=== PATIENT | female | born 1995 | race Caucasian/White ===

== ENCOUNTER 2018-07-09 23:22 | Emergency (ER) | payer OTHER ==
[2018-07-09] MEDS ORDERED: NS 1,000 ML IV ONE (23:40)
[2018-07-09] MEDS ORDERED: KETOROLAC 15 MG/1 ML SDV IVP ONE (23:40)
--- NOTE | 2018-07-09 23:45 | EDPHY ---
H & P Smoking Status: Never smoked Time Seen by Provider: 07/09/18 23:32 HPI/ROS: CHIEF COMPLAINT: Pelvic pain for 3 hr HISTORY OF PRESENT ILLNESS: The patient is a 23-year-old female here complaint of sudden onset of lower pelvic pain for the last 3 hr. She states he just started her periods was having some vaginal bleeding but has noted no blood in her urine. She is currently being treated for urinary tract infection and has been for the last 4 days but does not know what antibiotic she is taking. She denies any fever chills or back pain. She states this. His normal timing for her monthly period. She denies vaginal discharge. She has no history of ovarian cyst. She does report painful periods but this is much more intense than usual. REVIEW OF SYSTEMS: Constitutional: No fever, no chills. Eyes: No discharge. ENT: No sore throat. Cardiovascular: No chest pain, no palpitations. Respiratory: No cough, no shortness of breath. Gastrointestinal: + abdominal pain, no vomiting. Genitourinary: No hematuria. Musculoskeletal: No back pain. Skin: No rashes. Neurological: No headache. (Fahad Almaraz) Physical Exam: General Appearance: Alert and no distress. ENT: normal dentition. No tonsillar exudate or swelling. Eyes: Pupils equal and round no injection. Respiratory: Chest is nontender, lungs are clear to auscultation. Cardiac: regular rate and rhythm. No lower extremity edema Gastrointestinal: Abdomen is soft with suprapubic tenderness but no right or left adnexal tenderness or pain at McBurney's point, no masses, bowel sounds normal. Musculoskeletal: Neck is supple and nontender. Extremities have full range of motion and are nontender without deformity Skin: No rashes or lesions. Neuro: Cranial nerves grossly intact. No nystagmus. Normal [id number] testing. No ulnar drift. Equal grasp bilateral hands. Ambulatory. (Fahad Almaraz) Constitutional: Initial Vital Signs Temperature (C) 36.4 C 07/09/18 23:27 Heart Rate 58 L 07/09/18 23:27 Respiratory Rate 16 07/09/18 23:27 Blood Pressure 95/67 L 07/09/18 23:27 O2 Sat (%) 99 07/09/18 23:27 O2 Delivery Mode Room Air Allergies/Adverse Reactions: No Known Allergies Allergy (Unverified 07/09/18 23:27) Home Medications: Medication Instructions Recorded NK [No Known Home Meds] 07/09/18 Medical Decision Making ED Course/Re-evaluation: Patient signed out to Dr. Guidry pending a urinalysis. Serum is negative. Patient's pain is resolved with IV Toradol. (Fahad Almaraz) - Data Points Laboratory Results: Laboratory Results 07/10/18 01:30 07/10/18 00:32 07/10/18 07/10/18 07/10/18 01:30 01:30 00:32 WBC 10.82 10^3/uL H 10^3/uL (3.80-9.50) RBC 3.78 10^6/uL L 10^6/uL (4.18-5.33) Hgb 11.7 g/dL L g/dL (12.6-16.3) Hct 34.0 % L % (38.0-47.0) MCV 89.9 fL fL (81.5-99.8) MCH 31.0 pg pg (27.9-34.1) MCHC 34.4 g/dL g/dL (32.4-36.7) RDW 11.9 % % (11.5-15.2) Plt Count 149 10^3/uL L 10^3/uL (150-400) MPV 9.7 fL fL (8.7-11.7) Neut % (Auto) 88.3 % H % (39.3-74.2) Lymph % (Auto) 7.1 % L % (15.0-45.0) [place] % (Auto) 3.9 % L % (4.5-13.0) Eos % (Auto) 0.2 % L % (0.6-7.6) Baso % (Auto) 0.2 % L % (0.3-1.7) Nucleat RBC Rel Count 0.0 % % (0.0-0.2) Absolute Neuts (auto) 9.56 10^3/uL H 10^3/uL (1.70-6.50) Absolute Lymphs (auto) 0.77 10^3/uL L 10^3/uL (1.00-3.00) Absolute Monos (auto) 0.42 10^3/uL 10^3/uL (0.30-0.80) Absolute Eos (auto) 0.02 10^3/uL L 10^3/uL (0.03-0.40) Absolute Basos (auto) 0.02 10^3/uL 10^3/uL (0.02-0.10) Absolute Nucleated RBC 0.00 10^3/uL 10^3/uL (0-0.01) Immature Gran % 0.3 % % (0.0-1.1) Immature Gran # 0.03 10^3/uL 10^3/uL (0.00-0.10) Sodium 138 mEq/L mEq/L (135-145) Potassium 4.3 mEq/L mEq/L (3.3-5.0) Chloride 108 mEq/L mEq/L (97-110) Carbon Dioxide 19 mEq/l L mEq/l (22-31) Anion Gap 11 mEq/L mEq/L (6-14) BUN 18 mg/dL mg/dL (7-23) Creatinine 0.6 mg/dL mg/dL (0.6-1.0) Estimated GFR > 60 Glucose 149 mg/dL H mg/dL (70-100) Calcium 9.1 mg/dL mg/dL (8.5-10.4) Beta HCG, Qual Urine Color YELLOW Urine Appearance CLEAR Urine pH 6.0 (5.0-7.5) Ur Specific [place] 1.029 (1.002-1.030) Urine Protein 1+ H (NEGATIVE) Urine Ketones NEGATIVE (NEGATIVE) Urine Blood 1+ H (NEGATIVE) Urine Nitrate NEGATIVE (NEGATIVE) Urine Bilirubin NEGATIVE (NEGATIVE) Urine Urobilinogen NEGATIVE EU EU (0.2-1.0) Ur Leukocyte Esterase NEGATIVE (NEGATIVE) Urine RBC 3-5 /hpf H /hpf (0-3) Urine WBC 1-3 /hpf /hpf (0-3) Ur Epithelial Cells TRACE /lpf /lpf (NONE-1+) Urine Mucus TRACE /lpf /lpf (NONE-1+) Urine Glucose NEGATIVE (NEGATIVE) 07/10/18 07/10/18 00:32 00:26 WBC REJ RBC REJ Hgb REJ Hct REJ MCV REJ MCH REJ MCHC REJ RDW REJ Plt Count REJ MPV REJ Neut % (Auto) REJ Lymph % (Auto) REJ [place] % (Auto) REJ Eos % (Auto) REJ Baso % (Auto) REJ Nucleat RBC Rel Count REJ Absolute Neuts (auto) REJ Absolute Lymphs (auto) REJ Absolute Monos (auto) REJ Absolute Eos (auto) REJ Absolute Basos (auto) REJ Absolute Nucleated RBC REJ Immature Gran % REJ Immature Gran # REJ Sodium Potassium Chloride Carbon Dioxide Anion Gap BUN Creatinine Estimated GFR Glucose Calcium Beta HCG, Qual NEGATIVE Urine Color Urine Appearance Urine pH Ur Specific [place] Urine Protein Urine Ketones Urine Blood Urine Nitrate Urine Bilirubin Urine Urobilinogen Ur Leukocyte Esterase Urine RBC Urine WBC Ur Epithelial Cells Urine Mucus Urine Glucose Medications Given: Discontinued Medications Sodium Chloride (Ns) 1,000 mls @ 0 mls/hr IV EDNOW ONE; Wide Open PRN Reason: Protocol Stop: 07/09/18 23:41 Last Admin: 07/10/18 00:43 Dose: 1,000 mls Sodium Chloride (Ns) 500 mls @ 0 mls/hr IV EDNOW ONE; Wide Open PRN Reason: Protocol Stop: 07/10/18 00:53 Last Admin: 07/10/18 01:33 Dose: 500 mls Ketorolac Tromethamine (Toradol) 15 mg IVP EDNOW ONE Stop: 07/09/18 23:41 Last Admin: 07/10/18 00:43 Dose: 15 mg Departure - Departure Disposition: Home, Routine, Self-Care Clinical Impression: Dysmenorrhea Condition: Good Instructions: Dysmenorrhea (ED) Additional Instructions: You may take ibuprofen, 600 mg 3 times a day for pain. You may also take acetaminophen, 1000 mg 3 times a day alternating with ibuprofen. Follow up with OBGYN in 3-4 days for further evaluation. Return to the emergency depart for increasing severe pain, uncontrolled nausea vomiting, fevers, chills, or any other concerns. Referrals: Whitney Quintana DO [Doctor of Osteopathy] - As per Instructions Bertrand Pardo DO [Doctor of Osteopathy] - As per Instructions
[2018-07-10] MEDS ORDERED: NS 500 ML IV ONE (00:52)
[2018-07-10 01:41] LABS: PLATELET COUNT 149 10^3/uL (150-400)
[2018-07-10 02:55] VITALS: BP 110/66
== END 2018-07-10 02:55 | disposition home or self-care (01) ==
DX: N94.6 Dysmenorrhea, unspecified (principal); E86.9 Volume depletion, unspecified
CPT/HCPCS: 96374; J1885

== ENCOUNTER 2018-08-03 18:28 | Emergency (ER) | payer OTHER ==
[2018-08-03 18:34] VITALS: BP 98/65
--- NOTE | 2018-08-03 18:53 | EDPHY ---
H & P Stated Complaint: FELL SNOWBOARDING YESTERDAY/DENIES LOC/FELT DAZED ROJAS/NAUSEA DIZZYNESS TODAY Source: Patient Exam Limitations: No limitations - Personal History LMP (Females 10-55): Over 28 Days Ago Current Tetanus Diphtheria and Acellular Pertussis (TDAP): Yes - Medical/Surgical History Hx Asthma: No Hx Chronic Respiratory Disease: No Hx Diabetes: No Hx Cardiac Disease: No Hx Renal Disease: No Hx Cirrhosis: No Hx Alcoholism: No Hx HIV/AIDS: No Hx Splenectomy or Spleen Trauma: No Other PMH: L HIP SX - Social History Smoking Status: Never smoked Time Seen by Provider: 08/03/18 18:43 HPI/ROS: HPI: This is a 23-year-old female who presents with Chief Complaint: FELL SNOWBOARDING YESTERDAY/DENIES LOC/FELT DAZED ROJAS/NAUSEA DIZZINESS TODAY Location: Back of head Quality: Injury Duration: Yesterday afternoon Signs and Symptoms: No LOC, no fever, + nausea, no vomiting, no photophobia, no noise sensitivity, no neck stiffness, no ear pain, no tinnitus, no nasal congestion, no sinus pressure, no weakness, no radiation, no aura Timing: Acute Severity: [id number] Context: Patient reports that she was snowboarding for the 1st time yesterday afternoon, wearing a helmet, when she lost her balance and fell directly backwards hitting the back of her head. She reports that she felt immediate, constant, moderate pain that was nonradiating in nature. Upon standing she fell dizziness. She was able to snowboard down the rest of the mountain without any difficulty. She then rested for the remainder of the day and continued to feel nauseous and have a headache that was concentrated in the back of her head. She reports that it is not the worse headache of their life or thunderclap symptoms. Today she feels little bit nauseous and dizziness with changing positions from sitting to standing. She also feels like her balance is off. No prior history of concussions. Denies LOC/neck pain/vomiting /amnesia. 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 Modifying Factors: No [id number] pain medications taken. Comment: ROS: A comprehensive 10 system review of systems is otherwise negative aside from elements mentioned in the history of present illness. MEDICAL/SURGICAL/SOCIAL HISTORY: Medical history: Generally healthy. Does not take any regular medications. Surgical history: Left hip surgery. Social history: Denies alcohol, drug, tobacco use. Family history noncontributory. CONSTITUTIONAL: Polite and cooperative, articulate young adult white female, awake and alert, no obvious distress HEENT: Atraumatic and normocephalic. NECK: supple, no midline tenderness, flexion 45 degrees, extension 45 degrees, right and left lateral flexion 45 degrees. No meningismus. Cardiovascular: Normal S1/S2, regular rate, regular rhythm, without murmur rub or gallop. PULMONARY/CHEST: Symmetrical and nontender. no crepitus. Clear to auscultation bilaterally. Good air movement. No accessory muscle usage. ABDOMEN: Soft, nondistended, nontender, no ecchymosis. PELVIC: no pain with rocking; bilateral hips flexion 125 degrees, extension 30 degrees, with no pain internal rotation and no pain external rotation. BACK: No midline tenderness, no paraspinous spasm, deep tendon reflexes 2/2, no pain with straight leg raise, No foot drop. Achilles reflexes are equal bilaterally. Able to walk on heels and toes without difficulty. EXTREMITIES: 2/2 pulses, strength 5/5, DIP/PIP/MCP flexion/extension intact with good light touch sensation. no deformities, no clubbing, no cyanosis or edema. NEUROLOGICAL: no focal neuro deficits. GCS 15. Light touch sensation intact. Cranial nerves 2-12 grossly intact. Normal cerebellar testing. Normal finger- to-nose testing. Normal [id number] testing. SKIN: Warm and dry, no erythema. no rash. Good capillary refill. (Arias,Terra) Constitutional: Initial Vital Signs Temperature (C) 36.9 C 08/03/18 18:31 Heart Rate 72 18 18:31 Respiratory Rate 17 1218 18:31 Blood Pressure 98/65 L 08/03/18 18:31 O2 Sat (%) 99 08/03/18 18:31 O2 Delivery Mode Room Air Allergies/Adverse Reactions: No Known Allergies Allergy (Verified 08/03/18 18:31) Home Medications: Medication Instructions Recorded Ondansetron Odt [Zofran Odt 4 mg 4 mg PO Q4 PRN #12 tab 08/03/18 (*)] Medical Decision Making ED Course/Re-evaluation: Vital signs reviewed and stable upon arrival. Patient has no neurological deficits and no LOC After long discussion with patient and discussing nexus protocol; it was agreed that head CT imaging not indicated Patient was given prescription for Zofran, discussed concussion precautions and referral to the concussion Clinic She was also given referral to establish primary care provider and a work note for the next 2 days. This patient was seen under the supervision of my secondary supervising physician. I evaluated care for this patient independently. Discussed this patient with Dr. Ma who did not see the patient. (April Bianchi) I did not see this patient while she was in the emergency department. However her care was discussed with the PA while the patient was in the department. I agree with treatment plan and management (Chauncey Ma) Differential Diagnosis: Head injury including but not limited to concussion, skull fracture, intraparenchymal contusion, subarachnoid, subdural and epidural hematoma. (April Bianchi) Departure - Departure Disposition: Home, Routine, Self-Care Clinical Impression: Concussion without loss of consciousness, initial encounter Closed head injury due to snowboarding Qualifiers: Encounter type: initial encounter Qualified Code(s): S09.90XA - Unspecified injury of head, initial encounter Condition: Good Instructions: Concussion (ED), Head Injury (ED) Additional Instructions: You sustained a closed head injury and mild concussion and it is recommended that you observe concussion precautions. Please do not participate in any contact sports or moderate and strenuous activity until all symptoms have resolved or cleared by PCP/Concussion Clinic. Avoid any eye strain until all symptoms have resolved. Consume a minimum of 8-10 glasses of water or electrolyte fluid replacement drinks that include Gatorade, Powerade, Pedialyte. Take Tylenol 650 mg every 4 hours and/or Ibuprofen 600 mg every 8 hours with food as needed for pain/headache. Please follow-up with primary care provider in 5-7 days. If symptoms last longer than 1 week, please follow-up with Dr. Gonzalez in the concussion Clinic. Return to the ER immediately if you have progressive headaches, neurologic deficits, gait abnormality, visual disturbance, slurred speech, or any other symptom that concerns you. Referrals: Kimmy García MD [Medical Doctor] - As per Instructions Carey Gonzalez MD [Medical Doctor] - As per Instructions Stand Alone Forms: Work Excuse Prescriptions: Ondansetron Odt [Zofran Odt 4 mg (*)] 4 mg PO Q4 PRN #12 tab PRN Reason: Nausea/Vomiting, Use 1st
== END 2018-08-03 19:24 | disposition home or self-care (01) ==
DX: S06.0X0A Concussion without loss of consciousness, initial encounter (principal); V00.311A Fall from snowboard, initial encounter; Y93.23 Activity, snow (alpine) (downhill) skiing, snowboarding, sledding, tobogganing and snow tubing; Y92.89 Other specified places as the place of occurrence of the external cause; Y99.9 Unspecified external cause status